=== PATIENT | female | born 1945 | race Caucasian/White ===

== ENCOUNTER 2016-06-05 09:02 | Day surgery (SDC) | payer MEDICARE ==
[~2016-06-05 09:02] MED LIST: LACTATED RINGERS 500 ML IV ONE
[2016-06-05] MEDS ORDERED: CYCLOPENTOLATE 1% OPHTH DROPS 2 ML OPTH ONE (09:20)
[2016-06-05] MEDS ORDERED: TROPICAMIDE 1% OPHTH 2 ML DROPS OPTH ONE (09:20)
[2016-06-05] MEDS ORDERED: KETOROLAC 0.45% OPHTH DROPS OPTH ONE (09:20)
[2016-06-05] MEDS ORDERED: MIDAZOLAM 2 MG/2 ML VIAL IVP ONE (10:40)
[2016-06-05] MEDS ORDERED: EPINEPHrine 1 MG/ML AMP IO ONE (10:45)
[2016-06-05] MEDS ORDERED: CHONDR SULF/HYALURONATE SYRINGE IO ONE (10:45)
[2016-06-05] MEDS ORDERED: levoFLOXacin 0.5% OPHTH DROPS 5 ML OPTH ONE (10:45)
[2016-06-05] MEDS ORDERED: BRIMONIDINE 0.2% OPHTH DROPS 5 ML OPTH ONE (10:45)
[2016-06-05] MEDS ORDERED: BSS/LIDOCAINE/EPINEPHRINE 1 ML SYRINGE IO ONE (10:45)
[2016-06-05] MEDS ORDERED: PROPARACAINE 0.5% OPHTH DROPS 15 ML OPTH ONE (10:45)
[2016-06-05] MEDS ORDERED: NEOMYCIN/POLYMYX/DEXAMETH OPHTH OINT OPTH ONE (10:45)
== END 2016-06-05 09:03 | disposition home or self-care (01) ==
PROC: 08RJ3JZ Replacement of Right Lens with Synthetic Substitute, Percutaneous Approach (ICD-10-PCS; principal; 2016-06-05 10:00)
DX: H25.11 Age-related nuclear cataract, right eye (principal); Z88.2 Allergy status to sulfonamides; Z90.710 Acquired absence of both cervix and uterus; Z96.652 Presence of left artificial knee joint; Z90.49 Acquired absence of other specified parts of digestive tract
CPT/HCPCS: 66984; V2632; V2787

== ENCOUNTER 2016-06-19 10:29 | Day surgery (SDC) | payer MEDICARE ==
[2016-06-19] MEDS ORDERED: CYCLOPENTOLATE 1% OPHTH DROPS 2 ML OPTH ONE (10:30)
[2016-06-19] MEDS ORDERED: TROPICAMIDE 1% OPHTH 2 ML DROPS OPTH ONE (10:30)
[2016-06-19] MEDS ORDERED: KETOROLAC 0.45% OPHTH DROPS OPTH ONE (10:30)
[2016-06-19] MEDS ORDERED: LACTATED RINGERS 500 ML IV ONE (10:49)
[2016-06-19] MEDS ORDERED: PROPARACAINE 0.5% OPHTH DROPS 15 ML OPTH ONE (11:54)
[2016-06-19] MEDS ORDERED: EPINEPHrine 1 MG/ML AMP IO ONE (11:54)
[2016-06-19] MEDS ORDERED: NEOMYCIN/POLYMYX/DEXAMETH OPHTH OINT OPTH ONE (11:54)
[2016-06-19] MEDS ORDERED: BRIMONIDINE 0.2% OPHTH DROPS 5 ML OPTH ONE (11:54)
[2016-06-19] MEDS ORDERED: BSS/LIDOCAINE/EPINEPHRINE 1 ML SYRINGE IO ONE (11:55)
[2016-06-19] MEDS ORDERED: levoFLOXacin 0.5% OPHTH DROPS 5 ML OPTH ONE (11:55)
[2016-06-19] MEDS ORDERED: CHONDR SULF/HYALURONATE SYRINGE IO ONE (11:55)
[2016-06-19] MEDS ORDERED: TETRACAINE 0.5% OPHTH DROPS 4 ML LEFTEYE ONE (11:55)
[2016-06-19] MEDS ORDERED: MIDAZOLAM 2 MG/2 ML VIAL IVP ONE (12:00)
== END 2016-06-19 10:30 | disposition home or self-care (01) ==
PROC: 08RK3JZ Replacement of Left Lens with Synthetic Substitute, Percutaneous Approach (ICD-10-PCS; principal; 2016-06-19 11:15)
DX: H25.12 Age-related nuclear cataract, left eye (principal); Z88.2 Allergy status to sulfonamides; Z90.710 Acquired absence of both cervix and uterus; Z96.652 Presence of left artificial knee joint; Z90.49 Acquired absence of other specified parts of digestive tract
CPT/HCPCS: 66984; J7120; V2632

== ENCOUNTER 2016-12-06 19:38 | Emergency (ER) | payer MEDICARE ==
--- NOTE | 2016-12-06 22:12 | ED Physician Documentation ---
PD HPI Fall - Stated complaint Stated Complaint: GLF - RIB PX - Chief complaint Chief Complaint: General - History obtained from History obtained from: Patient, Family - History of Present Illness Mechanism of injury: Lost balance Fall distance: Standing position Where injury occurred: Home Timing - onset: How many hours ago (2) Injury(ies) location: Chest Pain level now: 5 Quality of pain: Pain, Sharp Associated symptoms: No: LOC, AMS Symptoms improve with: Rest Worsens with: Movement, Palpation Recently seen: Not recently seen - Additional information Additional information: while trying to hang a shower curtain, lost balance and fell, striking left chest wall against edge of tub Review of Systems Cardiac: reports: Chest pain / pressure (chest wall pain) Respiratory: reports: Reviewed and negative GI: reports: Reviewed and negative PD PAST MEDICAL HISTORY - Past Medical History Past Medical History: No - Present Medications Home Medications: Ambulatory Orders Medication Instructions Recorded Confirmed Diclofenac Sodium 50 mg ORAL BID 06/04/16 06/19/16 Fluticasone [Flonase] 2 spray INH DAILY 06/04/16 06/19/16 Trazodone HCl 50 mg ORAL DAILY PRN 06/04/16 06/19/16 - Allergies Allergies/Adverse Reactions: Allergies Allergy/AdvReac Type Severity Reaction Status Date / Time Sulfa (Sulfonamide Allergy Unknown Unknown Verified 12/06/16 19:49 Antibiotics) PD ED PE NORMAL - Vitals Vital signs reviewed: Yes - General General: Alert and oriented X 3, No acute distress, Well developed/nourished - Cardiac Cardiac: RRR, No murmur - Respiratory Respiratory: No respiratory distress, Clear bilaterally - Abdomen Abdomen: Normal bowel sounds, Soft, Non tender, Non distended - Derm Derm: Normal color, Warm and dry - Neuro Neuro: Alert and oriented X 3, cotton ginner helper 2-12 intact, No motor deficit, No sensory deficit, Normal speech - Free text exam Free text exam: left low anterolateral chest wall tenderness without crepitus 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 there is no evidence of fluid in either interface. lungs are clear and equal bilaterally. she declines pain medication in ED. Departure - Departure Disposition: 01 Home, Self Care Clinical Impression: Chest wall contusion Qualifiers: Encounter type: initial encounter Laterality: left Qualified Code(s): S20.212A - Contusion of left front wall of thorax, initial encounter Condition: Good Instructions: ED Contusion Chest Wall, ED Contusion Vs Minor Fx Rib Follow-Up: Davy Olea MD [Primary Care Provider] - Discharge Date/Time: 12/06/16 22:26
[2016-12-06 22:18] VITALS: BP 169/74
== END 2016-12-06 22:26 | disposition home or self-care (01) ==
LOC: ED 19:38
DX: S20.212A Contusion of left front wall of thorax, initial encounter (principal); W01.198A Fall on same level from slipping, tripping and stumbling with subsequent striking against other object, initial encounter; Y92.012 Bathroom of single-family (private) house as the place of occurrence of the external cause
CPT/HCPCS: 99283

== ENCOUNTER 2017-10-13 14:13 | Outpatient (CLI) | payer MEDICARE ==
[2017-10-13 14:44] LABS: CREATININE 0.8 mg/dL (0.4-1.0)
== END 2017-10-13 14:14 | disposition home or self-care (01) ==
LOC: LAB 14:13
PROVIDERS: ATTEND Physician Assistant Medical
DX: B35.1 Tinea unguium (principal); Z79.899 Other long term (current) drug therapy
CPT/HCPCS: 36415; 82565; 84450; 84460

== ENCOUNTER 2017-12-01 12:20 | Outpatient (CLI) | payer MEDICARE ==
[2017-12-01 12:52] LABS: CREATININE 0.8 mg/dL (0.4-1.0)
== END 2017-12-01 12:21 | disposition home or self-care (01) ==
LOC: LAB 12:20
PROVIDERS: ATTEND Physician Assistant Medical
DX: B35.1 Tinea unguium (principal); Z79.899 Other long term (current) drug therapy
CPT/HCPCS: 36415; 82565; 84450; 84460

== ENCOUNTER 2017-12-31 09:19 | Outpatient (CLI) | payer MEDICARE ==
[2017-12-31 18:04] LABS: CREATININE 0.7 mg/dL (0.4-1.0)
== END 2017-12-31 09:20 | disposition home or self-care (01) ==
LOC: LAB.F 09:19
PROVIDERS: ATTEND Physician Assistant Medical
DX: B35.1 Tinea unguium (principal); Z79.899 Other long term (current) drug therapy
CPT/HCPCS: 36415; 82565; 84450; 84460

== ENCOUNTER 2018-02-25 09:46 | Outpatient (CLI) | payer MEDICARE ==
[2018-02-25 18:00] LABS: CREATININE 0.7 mg/dL (0.4-1.0)
== END 2018-02-25 09:47 | disposition home or self-care (01) ==
LOC: LAB.F 09:46
PROVIDERS: ATTEND Physician Assistant Medical
DX: B35.1 Tinea unguium (principal); Z79.899 Other long term (current) drug therapy
CPT/HCPCS: 36415; 82565; 84450; 84460

== ENCOUNTER 2020-08-25 18:15 | Outpatient (CLI) | payer MEDICARE ==
[2020-08-25 19:53] LABS: BILIRUBIN,URINE NEGATIVE (NEGATIVE); GLUCOSE, URINE (UA) NEGATIVE (NEGATIVE); KETONES,URINE (UA) NEGATIVE (NEGATIVE); LEUKOCYTE ESTERASE, URINE SMALL (NEGATIVE); NITRITE,URINE NEGATIVE (NEGATIVE); OCCULT BLOOD,URINE SMALL (NEGATIVE); PROTEIN,URINE NEGATIVE (NEGATIVE); UROBILINOGEN,URINE 0.2 (NORMAL) E.U./dL (NORMAL)
[2020-08-25 20:03] LABS: CLARITY,URINE CLEAR (CLEAR)
[2020-08-25 20:04] LABS: BACTERIA,URINE Rare /HPF (None Seen); MUCUS,URINE Few Strands; SQUAMOUS EPITHELIAL CELL,UR FEW Squamous (<= Few)
== END 2020-08-25 18:16 | disposition home or self-care (01) ==
LOC: LAB.S 18:15
PROVIDERS: ATTEND Internal Medicine
DX: R39.15 Urgency of urination (principal); R30.9 Painful micturition, unspecified; R39.89 Other symptoms and signs involving the genitourinary system
CPT/HCPCS: 81001; 81003; 87086

== ENCOUNTER 2022-08-06 11:11 | Outpatient (CLI) | payer MEDICARE ==
[2022-08-06 15:40] LABS: BILIRUBIN,DIRECT 0.1 mg/dL (0.1-0.5); BILIRUBIN,TOTAL 0.7 mg/dL (0.2-1.0); CREATININE 0.7 mg/dL (0.4-1.0); TOTAL PROTEIN 6.7 g/dL (6.7-8.2)
== END 2022-08-06 11:12 | disposition home or self-care (01) ==
LOC: LAB.S 11:11
PROVIDERS: ATTEND Physician Assistant Medical
DX: B35.1 Tinea unguium (principal)
CPT/HCPCS: 36415; 80076; 82565; 84520

== ENCOUNTER 2022-11-04 09:37 | Outpatient (CLI) | payer MEDICARE ==
[2022-11-04 15:59] LABS: ALBUMIN 4.2 g/dL (3.2-5.5); ALKALINE PHOSPHATASE 58 IU/L (42-121); ALT ALANINE AMINOTRANSFERASE 17 IU/L (10-60); AST ASPARTATE AMINOTRANSFERASE 28 IU/L (10-42); BILIRUBIN,DIRECT < 0.10 mg/dL (0.03-0.18); BILIRUBIN,TOTAL 0.4 mg/dL (0.2-1.0); BUN - BLOOD UREA NITROGEN 18 mg/dL (6-20); CREATININE 0.7 mg/dL (0.6-1.3); GFR - MDRD 81 (>89); TOTAL PROTEIN 6.5 g/dL (6.4-8.9)
== END 2022-11-04 09:38 | disposition home or self-care (01) ==
LOC: LAB.S 09:37
PROVIDERS: ATTEND Physician Assistant Medical
DX: B35.1 Tinea unguium (principal)
CPT/HCPCS: 36415; 80076; 82565; 84520

== ENCOUNTER 2023-01-06 10:59 | Outpatient (CLI) | payer MEDICARE ==
[2023-01-06 15:47] LABS: ALBUMIN 4.3 g/dL (3.2-5.5); BUN - BLOOD UREA NITROGEN 26 mg/dL (6-20); CREATININE 0.7 mg/dL (0.6-1.3); GFR - MDRD 81 (>89)
[2023-01-06 15:48] LABS: ALKALINE PHOSPHATASE 53 IU/L (42-121); ALT ALANINE AMINOTRANSFERASE 16 IU/L (10-60); AST ASPARTATE AMINOTRANSFERASE 29 IU/L (10-42); BILIRUBIN,DIRECT < 0.10 mg/dL (0.03-0.18); BILIRUBIN,TOTAL 0.5 mg/dL (0.2-1.0); TOTAL PROTEIN 6.4 g/dL (6.4-8.9)
== END 2023-01-06 11:00 | disposition home or self-care (01) ==
LOC: LAB.S 10:59
PROVIDERS: ATTEND Physician Assistant Medical
DX: B35.1 Tinea unguium (principal)
CPT/HCPCS: 36415; 80076; 82565; 84520

== ENCOUNTER 2023-03-03 09:42 | Outpatient (CLI) | payer MEDICARE ==
[2023-03-03 17:19] LABS: ALBUMIN 4.5 g/dL (3.2-5.5); ALKALINE PHOSPHATASE 59 IU/L (42-121); ALT ALANINE AMINOTRANSFERASE 17 IU/L (10-60); AST ASPARTATE AMINOTRANSFERASE 26 IU/L (10-42); BILIRUBIN,DIRECT < 0.10 mg/dL (0.03-0.18); BILIRUBIN,TOTAL 0.5 mg/dL (0.2-1.0); BUN - BLOOD UREA NITROGEN 19 mg/dL (6-20); CREATININE 0.7 mg/dL (0.6-1.3); GFR - MDRD 81 (>89); TOTAL PROTEIN 6.9 g/dL (6.4-8.9)
== END 2023-03-03 09:43 | disposition home or self-care (01) ==
LOC: LAB.S 09:42
PROVIDERS: ATTEND Physician Assistant Medical
DX: B35.1 Tinea unguium (principal)
CPT/HCPCS: 36415; 80076; 82565; 84520

== ENCOUNTER 2023-05-19 09:42 | Outpatient (CLI) | payer MEDICARE ==
[2023-05-19 15:14] LABS: ALBUMIN 4.3 g/dL (3.2-5.5); BILIRUBIN,DIRECT 0.1 mg/dL (0.03-0.18); BILIRUBIN,TOTAL 0.5 mg/dL (0.2-1.0); CREATININE 0.8 mg/dL (0.6-1.3); TOTAL PROTEIN 6.7 g/dL (6.4-8.9)
== END 2023-05-19 09:43 | disposition home or self-care (01) ==
LOC: LAB.S 09:42
PROVIDERS: ATTEND Physician Assistant Medical
DX: B35.1 Tinea unguium (principal)
CPT/HCPCS: 36415; 80076; 82565; 84520

== ENCOUNTER 2023-08-04 09:50 | Outpatient (CLI) | payer MEDICARE ==
[2023-08-04 14:53] LABS: ALBUMIN 4.3 g/dL (3.2-5.5); BILIRUBIN,DIRECT 0.11 mg/dL (0.03-0.18); BILIRUBIN,TOTAL 0.5 mg/dL (0.2-1.0); CREATININE 0.6 mg/dL (0.6-1.3); TOTAL PROTEIN 6.7 g/dL (6.4-8.9)
== END 2023-08-04 09:51 | disposition home or self-care (01) ==
LOC: LAB.S 09:50
PROVIDERS: ATTEND Physician Assistant Medical
DX: B35.1 Tinea unguium (principal)
CPT/HCPCS: 36415; 80076; 82565; 84520

== ENCOUNTER 2023-08-25 15:52 | Outpatient (CLI) | payer MEDICARE ==
--- NOTE | 2023-08-26 00:04 | XRAY Report ---
PROCEDURE: Foot 3+V LT (Weight Bearing) INDICATIONS: LEFT FOOT PAIN TECHNIQUE: 3 views of the foot were acquired. COMPARISON: None. FINDINGS: Bones: No fractures or dislocations. Advanced degenerative changes in the midfoot. No suspicious bon y lesions. Bones appear osteopenic. Soft tissues: No tibiotalar joint effusion. Achilles tendon appears normal. IMPRESSION: Advanced degenerative changes in the midfoot. Bones appear osteopenic. Reviewed by: Cruzito Barrios MD on 08/26/2023 12:02 AM PDT Approved by: Cruzito Barrios MD on 08/26/2023 12:02 AM PDT Station ID: [id number]
== END 2023-08-25 15:53 | disposition home or self-care (01) ==
LOC: DI 15:52
PROVIDERS: ATTEND Podiatrist
DX: M19.072 Primary osteoarthritis, left ankle and foot (principal)

== ENCOUNTER 2023-10-03 10:02 | Outpatient (CLI) | payer MEDICARE ==
[2023-10-03 16:32] LABS: ALKALINE PHOSPHATASE 47 IU/L (42-121); ALT ALANINE AMINOTRANSFERASE 16 IU/L (10-60); AST ASPARTATE AMINOTRANSFERASE 25 IU/L (10-42); BILIRUBIN,DIRECT < 0.10 mg/dL (0.03-0.18); BILIRUBIN,TOTAL 0.4 mg/dL (0.2-1.0); BUN - BLOOD UREA NITROGEN 36 mg/dL (6-20); CREATININE 0.7 mg/dL (0.6-1.3); GFR - MDRD 81 (>89); TOTAL PROTEIN 6.3 g/dL (6.4-8.9)
== END 2023-10-03 10:03 | disposition home or self-care (01) ==
LOC: LAB.S 10:02
PROVIDERS: ATTEND Physician Assistant Medical
DX: B35.1 Tinea unguium (principal)
CPT/HCPCS: 36415; 80076; 82565; 84520

== ENCOUNTER 2024-07-30 07:45 | Inpatient (IN) ==
--- NOTE | 2024-07-30 07:56 | ED Physician Documentation ---
History of Present Illness Stated complaint Stated Complaint: GLF Chief complaint Chief Complaint: Ext Problem History obtained from History obtained from: Patient and EMS History of Present Illness Pain level max: 7 Pain level now: 4 Additonal information Additional information: Patient is an 79-year-old female who states that she was getting up out of bed today when she slipped fell and landed on her left hip. Complains of left hip pain. Worse with movement, unable to stand or walk. Called EMS who brought her to the emergency department. She states that her pain is "not bad" unless she tries to move her leg. No neck or back pain. No other injuries. Not on blood thinners. History of bilateral knee replacements and shoulder arthroplasties. Meds/Allgy Home Medications Ambulatory Orders Medication Instructions Recorded Confirmed fluticasone propionate 50 2 spray inhalation DAILY 01/1005/18/24 mcg/actuation nasal spray,suspension trazodone 50 mg tablet 50 mg ORAL QPM Insomnia 05/2505/18/24 ascorbic acid (vitamin C) 500 mg 500 mg PO DAILY 01/1705/18/24 capsule calcium 300 mg (carb, 2 ea PO BID 01/17/17 5 citrate)-magnesium 150 mg-vit D3 400 unit tablet (Hector-Mag Complex) cholecalciferol (vitamin D3) 25 50 mcg PO DAILY 05/18/24 mcg (1,000 unit) capsule multivitamin (Multiple Vitamins 1 ea PO BID supplement 01/17/17 05/18/24 tablet) omega 6-xge-gqc-fish oil 300 1,000 mg PO DAILY 7 05/18/24 mg-1,000 mg capsule (Fish Oil) sennosides 8.6 mg tablet (Senna 8.6 mg PO BID 01/17/17 05/18/24 Laxative) trospium 20 mg tablet 20 mg PO QPM 01/17/17 Held on 03/19/24. Instructions: Per Patient vitamin B comp with C no.4 150 mg 1 cap PO DAILY 01/1705/18/24 tablet (Super B Complex + C) vitamin E (dl, acetate) 180 mg 400 units PO DAILY 12/2605/18/24 (400 unit) capsule Held on 03/19/24. Instructions: Per Patient diclofenac sodium 50 mg 50 mg PO BID back pain 03/1905/18/24 tablet,delayed release docusate sodium 100 mg capsule 100 mg PO BID 03/19/24 05/18/24 (Colace) oxybutynin 5 mg PO .pm overactivity ebony dder 03/19/24 05/18/24 rosuvastatin 5 mg tablet (Crestor) 5 mg PO .bedtime 05/18/24 terbinafine HCl 250 mg tablet 250 mg PO .AM Fungus 05/18/24 Allergies Allergies Allergy/AdvReac Type Severity Reaction Status Date / Time Sulfa (Sulfonamide Allergy Unknown Unknown Verified 05/14/24 13:55 Antibiotics) PFSH Active Problems All Active Problems (Updated 07/30/24 @ 08:41 by Lonnie Das MD) Closed intertrochanteric fracture of left femur (Acute) Essential hypertension (Acute) Finger dislocation (Acute) Left hand pain (Acute) Localized edema (Acute) 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 (Date/Year): never smoked Do you dip or chew tobacco?: No Patient requests smoking cessation consult: No Initiate information on smoking cessation: No Relationship: Do you feel safe in your home environment?: Yes Suffered physical, verbal, emotional, or financial abuse?: No History of Abuse: No Exam Exam Vital Signs: Vital Signs x48h Temp Pulse Resp BP Pulse Ox 07/30/24 07:26 37.1 C 73 16 170/78 H 97 Constitutional normal general appearance and no apparent distress HENMT normocephalic, head/scalp atraumatic and TMs normal bilaterally Eyes PERRL and EOMs intact bilaterally Neck/C-Spine visual inspection normal, trachea midline, cervical spine nontender and cervical full ROM noted No tenderness to palpation or percussion. No step-off or deformity. Chest inspection of chest normal and palpation of chest normal Respiratory breath sounds equal bilaterally, normal respiratory effort and clear to auscultation bilaterally Cardiovascular normal heart rate noted and regular rhythm noted Gastrointestinal abdomen normal to inspection, abdomen soft to palpation, nontender to palpation, nontender to percussion and nondistended Genitourinary no CVA tenderness Back/Pelvis spine normal to inspection, no thoracic spine tenderness and no lumbar spine tenderness No tenderness to palpation or percussion. No step-off or deformity over the thoracolumbar spine Extremities Tender to palpation over the left hip. No crepitus. Neurovascular intact. Very limited range of motion secondary to pain. Leg is externally rotated and shortened. Otherwise normal examination of the extremities. Neurology sod stripper II-XII intact and GCS 15 Psychiatry mental status grossly normal and oriented x3 Skin skin color normal Results Vitals Vitals: Vital Signs - 24 hr 07/30/24 07:26 Temperature 37.1 C Temperature Source Temporal Artery Scan Pulse Rate 73 Respiratory Rate 16 Blood Pressure 170/78 H O2 Saturation 97 O2 Source Room air Pain Intensity 3 Oxygen O2 Source Room air Labs Labs: Laboratory Tests 07/30/24 08:03 WBC 10.2 RBC 4.01 L Hgb 12.9 Hct 38.8 MCV 96.8 MCH 32.2 H MCHC 33.2 RDW 14.4 Plt Count 270 MPV 9.9 Neut # (Auto) 8.2 H Lymph # (Auto) 1.1 L [place] # (Auto) 0.8 Eos # (Auto) 0.1 Baso # (Auto) 0.0 Absolute Nucleated RBC 0.00 Nucleated RBC % 0.0 Sodium 136 Potassium 4.1 Chloride 100 L Carbon Dioxide 31 Anion Gap 5.0 L BUN 23 H Creatinine 0.7 Estimated GFR (MDRD) 80 L Glucose 122 H Calcium 9.3 Total Bilirubin 0.5 AST 25 ALT 17 Alkaline Phosphatase 50 Total Protein 6.6 Albumin 4.2 Globulin 2.4 Albumin/Globulin Ratio 1.8 Rads (name of study) Left hip x-ray: Relevant Findings:: Final report received Chest x-ray: Relevant Findings:: Final report received PD Medical Decision Making ED course Complexity details: reviewed results, re-evaluated patient, considered differential, d/w patient, d/w family and d/w datastage consultant ED course: 79-year-old female status post a ground-level fall at home. She injured her left hip. Has a left intertrochanteric fracture that is displaced. Discussed the case with Dr. Keith, orthopedics, recommends admission to the hospitalist service and we will plan on operative fixation. Family asked that I contact [facility] to see if they out of bed as she has had prior joint surgeries there, [facility] [place] states that they are full and do not have any beds today. Informed the family of this and will admit the patient here as planned. Patient and family are comfortable with this plan. Discussed the case with the hospitalist, Dr. Damon who accepts. This document was made in part using voice recognition software. While efforts are made to proofread this document, sound alike and grammatical errors may occur. Discharge Plan Discharge Patient Disposition: 66 [facility] DC/Xfer Condition: Stable Clinical Impression: Closed intertrochanteric fracture of left femur Qualifiers: Encounter type: initial encounter Fracture alignment: displaced Qualified Cod e(s): S72.142A - Displaced intertrochanteric fracture of left femur, initial encounter for closed fracture Prescriptions: No Action trazodone 50 MG tablet 50 mg ORAL QPM fluticasone propionate 120 SPRAYS spray,suspension 2 spray inhalation DAILY Patient Comments: USED "A LONG TIME AGO" multivitamin [Multiple Vitamins] 1 EACH tablet 1 ea PO BID sennosides [Senna Laxative] 8.6 MG tablet 8.6 mg PO BID cholecalciferol (vitamin D3) 1,000 UNIT capsule 50 mcg PO DAILY trospium 20 MG tablet 20 mg PO QPM Super B Complex + C 150 MG tablet 1 cap PO DAILY vitamin E (dl, acetate) 400 UNIT capsule 400 units PO DAILY omega 0-fiy-qxs-fish oil [Fish Oil] 1 EACH capsule 1,000 mg PO DAILY ascorbic acid (vitamin C) 500 MG capsule 500 mg PO DAILY Hector-Mag Complex 1 EACH tablet 2 ea PO BID terbinafine HCl 250 mg tablet 250 mg PO .AM diclofenac sodium 50 mg tablet,delayed release (DR/EC) 50 mg PO BID oxybutynin 5 mg PO .pm rosuvastatin [Crestor] 5 mg tablet 5 mg PO .bedtime docusate sodium [Colace] 100 mg capsule 100 mg PO BID Print Language: Tongan
--- OUTSIDE RECORDS SUMMARY | 2024-07-30 08:06 | EXTERNAL MEDICAL SUMMARY RPT | Continuity of Care Document ---
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 [facility] 2024-05-03 14:28 Localized edema [facility] 2024-05-03 14:28 Other injury of unsp ecified body region, initial encounter [facility] 2024-05-10 16:05 Tinea unguium [facility] 2024-05-11 00:05 Tinea unguium [facility] 2024-05-12 13:07 Non-pressure chronic ulcer of left calf with fat layer exposed [facility] 2024-05-12 13:07 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 [facility] 2024-05-12 13:07 Localized edema [facility] 2024-05-12 13:07 Other injury of unsp ecified body region, initial encounter [facility] 2024-05-12 13:12 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 [facility] 2024-05-12 13:12 Localized edema [facility] 2024-05-12 13:12 Other injury of unsp ecified body region, initial encounter [facility] 2024-05-12 13:12 Encounter for follow -up examination after completed treatment for conditions other than malignant neoplasm [facility] 2024-05-14 14:37 [facility] 2024-05-14 15:24 Pain in left hand [facility] 2024-05-14 15:27 Pain in left hand [facility] 2024-05-15 00:02 Pain in left hand [facility] 2024-07-13 13:40 Tinea unguium [facility] 2024-07-13 13:42 Tinea unguium [facility] 2024-07-14 00:05 Tinea unguium [facility] Results/Labs test date facility value unit notes Result panel 1 BILIRUBIN,DIRECT 2024-05-10 16:07 [facility] < 0.10 m g/dl As of August 2022 testing method has changed, this may include reference ranges. BILIRUBIN,TOTAL 2024-05-10 16:07 [facility] 0.4 mg /dl As of August 2022 testing method has changed, this may include reference ranges. ALT ALANINE AMINOTRANSFERASE 2024-05-10 16:07 [facility] 18 iu/l As of August 2022 testing method has changed, this may include reference ranges. GLOBULIN 2024-05-10 16:07 [facility] 2.3 g/dl (missing) AST ASPARTATE AMINOTRANSFERASE 2024-05-10 16:07 [facility] 27 iu/l As of August 2022 testing method has changed, this may include reference ranges. ALBUMIN 2024-05-10 16:07 [facility] 4.3 g/dl As of August 2022 testing method has changed, this may include reference ranges. ALKALINE PHOSPHATASE 2024-05-10 16:07 [facility] 49 iu/l As of August 2022 testing method has changed, this may include reference ranges. TOTAL PROTEIN 2024-05-10 16:07 [facility] 6.6 g/dl As of August 2022 testing method has changed, this may include reference ranges. Result panel 2 BILIRUBIN,DIRECT 2024-07-13 13:44 [facility] < 0.10 m g/dl As of August 2022 testing method has changed, this may include reference ranges. BILIRUBIN,TOTAL 2024-07-13 13:44 [facility] 0.4 mg /dl As of August 2022 testing method has changed, this may include reference ranges. ALT ALANINE AMINOTRANSFERASE 2024-07-13 13:44 [facility] 18 iu/l As of August 2022 testing method has changed, this may include reference ranges. GLOBULIN 2024-07-13 13:44 [facility] 2.4 g/dl (missing) AST ASPARTATE AMINOTRANSFERASE 2024-07-13 13:44 [facility] 29 iu/l As of August 2022 testing method has changed, this may include reference ranges. ALBUMIN 2024-07-13 13:44 [facility] 4.4 g/dl As of August 2022 testing method has changed, this may include reference ranges. ALKALINE PHOSPHATASE 2024-07-13 13:44 [facility] 51 iu/l As of August 2022 testing method has changed, this may include reference ranges. TOTAL PROTEIN 2024-07-13 13:44 [facility] 6.8 g/dl As of August 2022 testing method has changed, this may include reference ranges. Social History date description facility
[2024-07-30 08:10] LABS: BASOPHILS % (AUTO) 0.4 %; EOSINOPHILS # (AUTO) 0.1 10^3/uL (0.0-0.7); EOSINOPHILS % (AUTO) 0.8 %; HCT - HEMATOCRIT 38.8 % (37.0-47.0); HGB - HEMOGLOBIN 12.9 g/dL (12.0-16.0); LYMPHOCYTES # (AUTO) 1.1 10^3/uL (1.5-3.5); LYMPHOCYTES % (AUTO) 10.7 %; MEAN CORPUSCULAR HEMOGLOBIN 32.2 pg (27.0-31.0); MEAN CORPUSCULAR HGB CONC 33.2 g/dL (32.0-36.0); MEAN CORPUSCULAR VOLUME 96.8 fL (81.0-99.0); MEAN PLATELET VOLUME 9.9 fL (7.9-10.8); MONOCYTES # (AUTO) 0.8 10^3/uL (0.0-1.0); MONOCYTES % (AUTO) 7.9 %; NEUTROPHILS # (AUTO) 8.2 10^3/uL (1.5-6.6); NEUTROPHILS % (AUTO) 79.7 %; PLT - PLATELET COUNT 270 10^3/uL (130-450); RED BLOOD COUNT 4.01 10^6/uL (4.20-5.40); RED CELL DISTRIBUTION WIDTH 14.4 % (12.0-15.0); WHITE BLOOD COUNT 10.2 x10^3/uL (4.8-10.8)
[2024-07-30 08:24] LABS: ALBUMIN 4.2 g/dL (3.2-5.5); ALBUMIN/GLOBULIN RATIO 1.8 (1.0-2.2); BILIRUBIN,TOTAL 0.5 mg/dL (0.2-1.0); CALCIUM 9.3 mg/dL (8.5-10.3); CREATININE 0.7 mg/dL (0.6-1.3); POTASSIUM 4.1 mmol/L (3.5-4.5); TOTAL PROTEIN 6.6 g/dL (6.4-8.9)
--- NOTE | 2024-07-30 08:59 | XRAY Report ---
PROCEDURE: XR Hip w/Pelvis 2-3V LT INDICATIONS: fall, hip pain TECHNIQUE: 3 views of the hip were acquired. COMPARISON: None. FINDINGS: Bones: Acute comminuted fracture involving intertrochanteric region of left proximal femur with superior migration of femoral shaft in relation to femoral head. No dislocation. Moderate bilateral hip joint osteoarthritis. No evidence of avascular necrosis. No suspicious bony lesions. Soft tissues: No suspicious soft tissue calcifications or masses. IMPRESSION: Acute comminuted and displaced intertrochanteric fracture of left proximal femur. Reviewed by: Fox Brady MD on 07/30/2024 8:58 AM PDT Approved by: Fox Brady MD on 07/30/2024 8:58 AM PDT Station ID: [id number]
--- NOTE | 2024-07-30 08:59 | XRAY Report ---
PROCEDURE: XR Chest 1V INDICATIONS: pre op TECHNIQUE: One view of the chest was acquired. COMPARISON: None. FINDINGS: Surgical changes and devices: Patient is status post bilateral shoulder arthroplasty. Lungs and pleura: No pleural effusions or pneumothorax. No consolidation. Mediastinum: Mediastinal contours appear normal. Heart size is normal. Bones and chest wall: No suspicious bony lesions. Overlying soft tissues appear unremarkable. IMPRESSION: No acute cardiopulmonary process. Reviewed by: Fox Brady MD on 07/30/2024 8:58 AM PDT Approved by: Fox Brady MD on 07/30/2024 8:58 AM PDT Station ID: [id number]
[2024-07-30] MEDS ORDERED: SODIUM CHLORIDE FLUSH 0.9% 10 ML SYRINGE IVP PRN (09:45)
--- OUTSIDE RECORDS SUMMARY | 2024-07-30 10:08 | EXTERNAL MEDICAL SUMMARY RPT | Continuity of Care Document ---
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 [facility]BUM[facility] 2024-05-10 16[facility]07 [facility] 4.3 g/dl As of August 2022 testing method has changed, this may include reference ranges. ALKALINE PHOSPHATASE 2024-05-10 16:07 [facility] 49 iu/l As of August 2022 testing method has changed, this may include reference ranges. TOTAL PROTEIN 2024-05-10 16:07 [facility] 6.6 g/dl As of August 2022 [...] reference ranges. ALT ALANINE AMINOTRANSFERASE 2024-07-13 13:44 [facility] 18 iu/l As of August 2022 testing method has changed, this may include reference ranges. GLOBULIN 2024-07-13 13:44 [facility] 2.4 g/dl (missing) AST ASPARTATE AMINOTRANSFERASE 2024-07-13 13:44 [facility] 29 iu/l As of August 2022 testing method has changed, this may include reference ranges. ALBUMIN 2024-07-13 13:44 [facility] 4.4 g/dl As of August 2022 testing method has changed, this may include reference ranges. ALKALINE PHOSPHATASE 2024-07-13 13:44 [facility] 51 iu/l As of August 2022 testing method has changed, this may include reference ranges. TOTAL PROTEIN 2024-07-13 13:44 [facility] 6.8 g/dl As of August 2022 testing method has changed, this may include reference ranges. Social History date description facility
--- OUTSIDE RECORDS SUMMARY | 2024-07-30 10:09 | EXTERNAL MEDICAL SUMMARY RPT | Continuity of Care Document ---
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 [facility] 2024-05-03 14:28 Localized edema [facility] 2024-05-03 14:28 Other injury of unsp ecified body region, initial encounter [email or web address] 2024-05-10 16:05 Tinea unguium [facility] 2024-05-11 00:05 Tinea unguium [facility] 2024-05-12 13:07 Non-pressure chronic ulcer of left calf with fat layer exposed [facility] 2024-05-12 13:07 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 [facility] 2024-05-12 13:07 Localized edema [facility] 2024-05-12 13:07 Other injury of unsp ecified body region, initial encounter [email or web address] 2024-05-12 13:12 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 ALBUMIN 2024-05-10 16:07 [email or web address] 4.3 g/dl As of August 2022 testing method has changed, this may include reference ranges. ALKALINE PHOSPHATASE 2024-05-10 16:07 [facility] 49 iu/l As of August 2022 testing method has changed, this may include reference ranges. TOTAL PROTEIN 2024-05-10 16:07 [email or web address] 6.6 g/dl As of August 2022 [...] reference ranges. ALT ALANINE AMINOTRANSFERASE 2024-07-13 13:44 [facility] 18 iu/l As of August 2022 testing method has changed, this may include reference ranges. GLOBULIN 2024-07-13 13:44 [facility] 2.4 g/dl (missing) AST ASPARTATE AMINOTRANSFERASE 2024-07-13 13:44 [facility] 29 iu/l As of August 2022 testing method has changed, this may include reference ranges. ALBUMIN 2024-07-13 13:44 [facility] 4.4 g/dl As of August 2022 testing method has changed, this may include reference ranges. ALKALINE PHOSPHATASE 2024-07-13 13:44 [facility] 51 iu/l As of August 2022 testing method has changed, this may include reference ranges. TOTAL PROTEIN 2024-07-13 13:44 [facility] 6.8 g/dl As of August 2022 testing method has changed, this may include reference ranges. Social History date description facility
[2024-07-30] MEDS: ACETAMINOPHEN 325 MG TABLET PO PRN (10:25)
[2024-07-30] MEDS: oxyCODONE 5 MG TABLET PO PRN (10:26)
[2024-07-30] MEDS: SODIUM CHLORIDE FLUSH 0.9% 10 ML SYRINGE IVP SCH (10:29)
--- NOTE | 2024-07-30 11:38 | HISTORY & PHYSICAL EXAMINATION ---
Chief Complaint Chief Complaint Chief Complaint: Ground Level Fall, Left Hip Pain History of Present Illness Admitted From Admitted From:: ED History Obtained From Records Reviewed: ED History obtained from: Patient, ED Exam Limitations: None History of Present Illness HPI Comment/Other: 79 year old female with history of B/L total knee replacements, B/L shoulder arthroplasty, osteoporosis presents s/p ground level fall last night. Patient reports falling on her left hip while getting out of bed due to pre-existing left foot pain. Denies any LOC, dizziness, or syncope prior to fall. Denies landing on left wrist, denies wrist pain. States she attempted to get up but couldn't bear weight on her left leg. States she scooted over to the restroom to pee and then to the kitchen to get her phone to call her daughter. She arrived via EMS. Denies loss of bowel or bladder control. Denies back pain. Reports history of osteoporosis and getting IV infusion Bisphosphonate yearly. Denies history of diabetes. Denies blood thinner use. Denies history of smoking and quit alcohol use 18 years ago. She currently lives alone and normally ambulates without aid. She has two dogs and walks at least 5 miles a day. Denies history of RA. Currently rates pain as 3/10. Meds/Allgy Home Medications Ambulatory Orders Medication Instructions Recorded Confirmed fluticasone propionate 50 2 spray inhalation DAILY 01/1007/30/24 mcg/actuation nasal spray,suspension trazodone 50 mg tablet 50 mg ORAL QPM Insomnia 05/2507/30/24 ascorbic acid (vitamin C) 500 mg 500 mg PO DAILY 01/1707/30/24 capsule calcium 300 mg (carb, 2 ea PO BID 01/17/17 5 citrate)-magnesium 150 mg-vit D3 400 unit tablet (Hector-Mag Complex) cholecalciferol (vitamin D3) 25 50 mcg PO DAILY 07/30/24 mcg (1,000 unit) capsule multivitamin (Multiple Vitamins 1 ea PO BID supplement 01/17/17 07/30/24 tablet) omega 2-vbf-lin-fish oil 300 1,000 mg PO DAILY 7 07/30/24 mg-1,000 mg capsule (Fish Oil) sennosides 8.6 mg tablet (Senna 8.6 mg PO BID 01/17/17 07/30/24 Laxative) vitamin B comp with C no.4 150 mg 1 cap PO DAILY 01/1707/30/24 tablet (Super B Complex + C) diclofenac sodium 50 mg 50 mg PO BID back pain 03/1907/30/24 tablet,delayed release docusate sodium 100 mg capsule 100 mg PO BID 03/19/24 07/30/24 (Colace) rosuvastatin 5 mg tablet (Crestor) 5 mg PO QPM 5 07/30/24 terbinafine HCl 250 mg tablet 250 mg PO DAILY Fungus 0 03/19/24 07/30/24 oxybutynin chloride 5 mg tablet 5 mg PO QPM 07/30/24 0 07/30/24 Allergies Allergies Allergy/AdvReac Type Severity Reaction Status Date / Time Sulfa (Sulfonamide Allergy Unknown Unknown Verified 05/14/24 13:55 Antibiotics) PFSH Active Problems All Active Problems (Updated 07/30/24 @ 15:09 by Ash Bishop MD) Insomnia (Acute) Closed intertrochanteric fracture of left femur (Acute) Essential hypertension (Acute) Finger dislocation (Acute) Left hand pain (Acute) Localized edema (Acute) 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 (Date/Year): never smoked Second hand tobacco smoke exposure: No Do you dip or chew tobacco?: No Do you vape?: No Patient requests smoking cessation consult: No Initiate information on smoking cessation: No Relationship: Level: Independent Do you feel safe in your home environment?: Yes Suffered physical, verbal, emotional, or financial abuse?: No History of Abuse: No POLST Patient has POLST: Yes POLST Status: Full Code Review of Systems Constitutional Reports: Weakness; Denies: Fatigue, Fever, Chills, Malaise or Poor appetite Eyes Denies: Pain, Irritation, Blurry vision, Vision loss, Diplopia or Eye discomfort Ears, nose, mouth, and throat Denies: Ear pain, Hearing loss, Tinnitus, Nose bleeds, Nasal discharge, Mouth lesions, Bleeding gums or Neck pain Cardiovascular Denies: Irregular heart rate, chest pain, palpitations, edema, Syncope or shortness of breath with exertion Respiratory Denies: Shortness of breath, Cough, Sputum production or Wheezing Gastrointestinal Denies: Abdominal pain, Abdominal distention, Nausea, Vomiting, Heartburn, Diarrhea or Constipation Genitourinary Denies: Painful urination, Urinary frequency or Urinary urgency Musculoskeletal Reports: Extremity pain (Left hip pain, difficulty bearing weight. ), Joint pain, Limited range of motion and Joint swelling; Denies: Neck pain Integumentary/Breast Denies: Rash, Itching, Dryness, Redness or Skin pain Neurological Denies: Headache, General weakness, Weakness in extremities, Numbness in extremities, Abnormal gait or Dizziness Psychiatric Denies: Depression, Anxiety, Mood swings or Panic attacks Endocrine Denies: Excessive urination, Excessive thirst or Fatigue Hematologic/Lymphatic Denies: Anemia, Easy bruising or Easy bleeding Allergic/Immunologic Denies: Hives, Tongue swelling, Facial swelling or Wheezing Prior Level of Functionality: Lives alone. Independently completing ADLs. Exam Exam Vital Signs: Vital Signs x48h Temp Pulse Pulse Resp BP BP Pulse Ox 07/30/24 09:47 98.1 F 78 18 109/76 97 07/30/24 09:33 76 16 166/71 H 95 Constitutional normal general appearance and no apparent distress HENMT normocephalic, head/scalp atraumatic and TMs normal bilaterally Eyes PERRL and EOMs intact bilaterally Neck/C-Spine visual inspection normal, trachea midline, cervical spine nontender and cervical full ROM noted No tenderness to palpation or percussion. No step-off or deformity. Chest inspection of chest normal and palpation of chest normal Respiratory breath sounds equal bilaterally, normal respiratory effort and clear to auscultation bilaterally Cardiovascular normal heart rate noted and regular rhythm noted Gastrointestinal abdomen normal to inspection, abdomen soft to palpation, nontender to palpation, nontender to percussion and nondistended Genitourinary no CVA tenderness Back/Pelvis spine normal to inspection, no thoracic spine tenderness and no lumbar spine tenderness Extremities Neurovascular intact. Limited range of motion secondary to pain. Leg is externally rotated and shortened Neurology glass silverer II-XII intact and GCS 15 Psychiatry mental status grossly normal and oriented x3 Skin skin color normal Conclusion/Plan Problem List (1) Closed intertrochanteric fracture of left femur: Plan: -Patient s/p ground level fall last night with subsequent left communited and displaced intertrochanteric fracture of left proximal femur. Denies history of smoking, DM, anticoagulant use, or antiplatelet use. Ortho surgery consulted with plans to undergo ORIF, likely intramedullary nail, tomorrow. Patient lives alone and normally ambulates without aid. She will be NPO after midnight, prior to surgery and will undergo PT/OT eval after surgery. -Patient will alternate Tylenol 650mg Q4hrs PRN with opiod pain medication. Patient endorses rash with previous use of one either oxycodone or hydrocodone but was able to tolerate the other not used. Patient will call family to confirm which medication prior to administration. Qualifiers: Encounter type: initial encounter Fracture alignment: displaced Q ualified Code(s): S72.142A - Displaced intertrochanteric fracture of left femur, initial encounter for closed fracture (2) Essential hypertension: Plan: -Patient unmedicated but with historically high readings. Will continue to monitor BP and consider treating if persistently elevated. (3) High cholesterol: Plan: -Continue statin. (4) Insomnia: Plan: -Continue trazodone. Qualifiers: Insomnia type: unspecified Qualified Code(s): G47.00 - Insomnia, unspecified Lab Results Lab results reviewed: Yes 07/30/24 08:03 07/30/24 08:03 Diagnostic Imaging Results Diagnostic Imaging Results: positive Final report reviewed Diagnostic Imaging Results Comments: EXAM: [id number] XR/H2L ([id number]) PROCEDURE: XR Hip w/Pelvis 2-3V LT INDICATIONS: fall, hip pain TECHNIQUE: 3 views of the hip were acquired. COMPARISON: None. FINDINGS: Bones: Acute comminuted fracture involving intertrochanteric region of left proximal femur with superior migration of femoral shaft in relation to femoral head. No dislocation. Moderate bilateral hip joint osteoarthritis. No evidence of avascular necrosis. No suspicious bony lesions. Soft tissues: No suspicious soft tissue calcifications or masses. IMPRESSION: Acute comminuted and displaced intertrochanteric fracture of left proximal femur. Core Measures Anticipated LOS I expect patient to be DC'd or transferred within 96 hours.: Yes DVT/VTE - Prophylaxis VTE/DVT Device ordered at admit?: Yes VTE/DVT Prophylaxis med ordered at admit?: Yes
--- NOTE | 2024-07-30 13:09 | PHARMACY PROGRESS NOTE ---
Best Possible Medication History Admit Date and Time: 07/30/24 0850 Home Medications Medication Instructions Recorded Confirmed Type fluticasone propionate 50 2 spray inhalation DAILY 01/1007/30/24 History mcg/actuation nasal spray,suspension trazodone 50 mg tablet 50 mg ORAL QPM Insomnia 05/2507/30/24 History ascorbic acid (vitamin C) 500 mg 500 mg PO DAILY 01/1707/30/24 History capsule calcium 300 mg (carb, 2 ea PO BID 01/17/17 5 History citrate)-magnesium 150 mg-vit D3 400 unit tablet (Hector-Mag Complex) cholecalciferol (vitamin D3) 25 50 mcg PO DAILY 07/30/24 History mcg (1,000 unit) capsule multivitamin (Multiple Vitamins 1 ea PO BID supplement 01/17/17 07/30/24 History tablet) omega 8-nhx-vse-fish oil 300 1,000 mg PO DAILY 7 07/30/24 History mg-1,000 mg capsule (Fish Oil) sennosides 8.6 mg tablet (Senna 8.6 mg PO BID 01/17/17 07/30/24 History Laxative) vitamin B comp with C no.4 150 mg 1 cap PO DAILY 01/1707/30/24 History tablet (Super B Complex + C) diclofenac sodium 50 mg 50 mg PO BID back pain 03/1907/30/24 History tablet,delayed release docusate sodium 100 mg capsule 100 mg PO BID 03/19/24 07/30/24 History (Colace) rosuvastatin 5 mg tablet (Crestor) 5 mg PO QPM 5 07/30/24 History terbinafine HCl 250 mg tablet 250 mg PO DAILY Fungus 0 03/19/24 07/30/24 History oxybutynin chloride 5 mg tablet 5 mg PO QPM 07/30/24 0 07/30/24 History Processed by: Pharmacy Medications reviewed in ED?: No Medication History completed: Yes Patient Interview: Completed Secondary Source(s): Written medication list, Pharmacy records and Insurance records [facility] Statement: As the person ultimately responsible for medication therapy, providers are able to order a medication from an existing home medication list in [facility] via the "Reconcile Routine" prior to Confirmation of that medication by field technical support consultant. Such practice is discouraged except when the physician, in their clinical judgment, deems that a medical need exists for a medication without regard to previous use.
[2024-07-30] MEDS: MORPHINE 2 MG/ML CARPUJECT IVP PRN (14:51)
[2024-07-30] MEDS: DOCUSATE SODIUM 100 MG CAPSULE PO SCH (21:22)
[2024-07-30] MEDS: traZODone 50 MG TABLET PO SCH (21:22)
[2024-07-30] MEDS: ATORVASTATIN 10 MG TABLET PO SCH (21:22)
[2024-07-30] MEDS: CALCIUM CARBONATE CHEW 500 MG TABLET PO SCH (21:23)
[2024-07-30] MEDS: SENNA 8.6 MG TABLET PO SCH (21:23)
[2024-07-30] MEDS: SOLIFENACIN SUCCINATE 5 MG TABLET PO SCH (21:23)
[2024-07-31] MEDS: MULTIVITAMIN TABLET PO SCH (07:42)
[2024-07-31] MEDS ORDERED: BUPIVACAINE 0.5% PF 10 ML VIAL ONE (07:54)
[2024-07-31] MEDS ORDERED: BACITRACIN ZINC OINT 1 PACKET TOP ONE (07:54)
[2024-07-31] MEDS ORDERED: LIDOCAINE 1%-EPI 1:100000 20 ML MDV ONE (07:54)
[2024-07-31] MEDS: OMEGA-3 ACID ETHYL ESTERS 1 GM CAPSULE PO SCH (08:35)
[2024-07-31] MEDS: ASCORBIC ACID 500 MG TABLET PO SCH (08:35)
[2024-07-31] MEDS: ENOXAPARIN 40 MG/0.4 ML SYRINGE SUBQ SCH (08:35)
[2024-07-31] MEDS: FLUTICASONE NASAL SPRAY NAS SCH (08:35)
[2024-07-31] MEDS: Super B Complex PO SCH (08:35)
[2024-07-31] MEDS: CHOLECALCIFEROL 25 MCG TABLET PO SCH (08:35)
--- NOTE | 2024-07-31 08:44 | ANESTHESIA PROCEDURE NOTE ---
Pre-Anesthesia VS, & Labs Diagnosis Surgical Diagnosis:: Left Hip fracture Procedure Procedure: ORIF left hip fracture with IM nailing Vitals Vital Signs: Temp Pulse Resp BP Pulse Ox 37.0 C 69 20 155/67 H 95 07/31/24 08:19 07/31/24 08:19 07/31/24 08:19 07/31/24 08:19 07/31/24 08:19 NPO NPO: >8 hours Is Patient ?: Not Applicable Lab Results Current Lab Results: Laboratory Tests 07/30/24 08:03: WBC 10.2, RBC 4.01 L, Hgb 12.9, Hct 38.8, MCV 96.8, MCH 32.2 H, MCHC 33.2, RDW 14.4, Plt Count 270, MPV 9.9, Neut # (Auto) 8.2 H, Lymph # (Auto) 1.1 L, [place] # (Auto) 0.8, Eos # (Auto) 0.1, Baso # (Auto) 0.0, Absolute Nucleated RBC 0.00, Nucleated RBC % 0.0, Sodium 136, Potassium 4.1, Chloride 100 L, Carbon Dioxide 31, Anion Gap 5.0 L, BUN 23 H, Creatinine 0.7, Estimated GFR (MDRD) 80 L, Glucose 122 H, Calcium 9.3, Total Bilirubin 0.5, AST 25, ALT 17, Alkaline Phosphatase 50, Total Protein 6.6, Albumin 4.2, Globulin 2.4, Albumin/Globulin Ratio 1.8 Lab results reviewed: Yes 07/30/24 08:03 07/30/24 08:03 Meds/Allgy Home Medications Ambulatory Orders Medication Instructions Recorded Confirmed fluticasone propionate 50 2 spray inhalation DAILY 01/1007/30/24 mcg/actuation nasal spray,suspension trazodone 50 mg tablet 50 mg ORAL QPM Insomnia 05/2507/30/24 ascorbic acid (vitamin C) 500 mg 500 mg PO DAILY 01/1707/30/24 capsule calcium 300 mg (carb, 2 ea PO BID 01/17/17 5 citrate)-magnesium 150 mg-vit D3 400 unit tablet (Hector-Mag Complex) cholecalciferol (vitamin D3) 25 50 mcg PO DAILY 07/30/24 mcg (1,000 unit) capsule multivitamin (Multiple Vitamins 1 ea PO BID supplement 01/17/17 07/30/24 tablet) omega 5-qez-cry-fish oil 300 1,000 mg PO DAILY 7 07/30/24 mg-1,000 mg capsule (Fish Oil) sennosides 8.6 mg tablet (Senna 8.6 mg PO BID 01/17/17 07/30/24 Laxative) vitamin B comp with C no.4 150 mg 1 cap PO DAILY 01/1707/30/24 tablet (Super B Complex + C) diclofenac sodium 50 mg 50 mg PO BID back pain 03/1907/30/24 tablet,delayed release docusate sodium 100 mg capsule 100 mg PO BID 03/19/24 07/30/24 (Colace) rosuvastatin 5 mg tablet (Crestor) 5 mg PO QPM 5 07/30/24 terbinafine HCl 250 mg tablet 250 mg PO DAILY Fungus 0 03/19/24 07/30/24 oxybutynin chloride 5 mg tablet 5 mg PO QPM 07/30/24 0 07/30/24 Allergies Allergies Allergy/AdvReac Type Severity Reaction Status Date / Time Sulfa (Sulfonamide Allergy Unknown Unknown Verified 05/14/24 13:55 Antibiotics) PFSH Active Problems All Active Problems Insomnia (Acute) Closed intertrochanteric fracture of left femur (Acute) Essential hypertension (Acute) Finger dislocation (Acute) Left hand pain (Acute) Localized edema (Acute) 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 (Date/Year): never smoked Second hand tobacco smoke exposure: No Do you dip or chew tobacco?: No Do you vape?: No Patient requests smoking cessation consult: No Initiate information on smoking cessation: No Living arrangement: At home Marital Status: Single Living Condition: Alone Relationship: Level: Independent Do you feel safe in your home environment?: Yes Suffered physical, verbal, emotional, or financial abuse?: No History of Abuse: No ETOH Use: None Substance Use: denies use POLST Patient has POLST: Yes POLST Status: Full Code Anesthesia Exam (Expanded) Exam General: Alert, Oriented x3 and Cooperative Dental: WNL Mouth Openin Fingerbreadth Neck Mobility: Reduced Mallampati classification: II Thyromental Distance: 4-6 cm Respiratory: Lungs clear Cardiovascular: Regular rate Exam Exam Vital Signs: Vital Signs x48h Temp Pulse Resp BP Pulse Ox 07/31/24 08:19 37.0 C 69 20 155/67 H 95 Plan Plan Anesthesia Type: General and Fascia Iliaca Block (Left) Regional Block: Per Surgeon's request for Post Op pain control Consent for Procedure(s) Verified and Reviewed: Yes Code Status: Attempt Resuscitation ASA Classification ASA classification: 2-Mild systemic disease Is this case an emergency?: No
[2024-07-31] MEDS ORDERED: fentaNYL 100 MCG/2 ML VIAL ONE (08:50)
[2024-07-31] MEDS ORDERED: PROPOFOL 200 MG/20 ML VIAL IVP ONE (08:50)
[2024-07-31] MEDS ORDERED: PHENYLEPHRINE 10 MG/ML VIAL ONE (08:57)
[2024-07-31] MEDS ORDERED: LACTATED RINGERS 1,000 ML IV PRN (09:03)
[2024-07-31] MEDS ORDERED: TRANEXAMIC ACID IN NACL 1,000 MG/100 ML BAG IV PRN (09:03)
[2024-07-31] MEDS ORDERED: SODIUM CHLORIDE 0.9% MINIBAG 100 ML IV ONE (09:10)
[2024-07-31] MEDS ORDERED: ceFAZolin 2 GM VIAL ONE (09:10)
--- NOTE | 2024-07-31 09:13 | HISTORY & PHYSICAL EXAMINATION ---
History of Present Illness Admitted From Admitted From:: Emergency room History of Present Illness HPI Comment/Other: Patient fell onto left hip and sustained a left hip fracture. She was seen in the emergency room and was admitted to Medicine and I have been consulted regarding management of the hip. The patient states that she is unable to walk she is unable to lift her leg and all her pain is located around the left hip. She has no numbness or tingling. Colonoscopy Questionnaire In the last 30 days have you experienced these symptoms? 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 (Date/Year): never smoked Second hand tobacco smoke exposure: No Do you dip or chew tobacco?: No Do you vape?: No Patient requests smoking cessation consult: No Initiate information on smoking cessation: No Living arrangement: At home Marital Status: Single Living Condition: Alone Relationship: Level: Independent Do you feel safe in your home environment?: Yes Suffered physical, verbal, emotional, or financial abuse?: No History of Abuse: No ETOH Use: None Substance Use: denies use POLST Patient has POLST: Yes POLST Status: Full Code Meds/Allgy Home Medications Ambulatory Orders Medication Instructions Recorded Confirmed fluticasone propionate 50 2 spray inhalation DAILY 01/1007/30/24 mcg/actuation nasal spray,suspension trazodone 50 mg tablet 50 mg ORAL QPM Insomnia 05/2507/30/24 ascorbic acid (vitamin C) 500 mg 500 mg PO DAILY 01/1707/30/24 capsule calcium 300 mg (carb, 2 ea PO BID 01/17/17 5 citrate)-magnesium 150 mg-vit D3 400 unit tablet (Hector-Mag Complex) cholecalciferol (vitamin D3) 25 50 mcg PO DAILY 07/30/24 mcg (1,000 unit) capsule multivitamin (Multiple Vitamins 1 ea PO BID supplement 01/17/17 07/30/24 tablet) omega 5-uen-mwa-fish oil 300 1,000 mg PO DAILY 7 07/30/24 mg-1,000 mg capsule (Fish Oil) sennosides 8.6 mg tablet (Senna 8.6 mg PO BID 01/17/17 07/30/24 Laxative) vitamin B comp with C no.4 150 mg 1 cap PO DAILY 01/1707/30/24 tablet (Super B Complex + C) diclofenac sodium 50 mg 50 mg PO BID back pain 03/1907/30/24 tablet,delayed release docusate sodium 100 mg capsule 100 mg PO BID 03/19/24 07/30/24 (Colace) rosuvastatin 5 mg tablet (Crestor) 5 mg PO QPM 5 07/30/24 terbinafine HCl 250 mg tablet 250 mg PO DAILY Fungus 0 03/19/24 07/30/24 oxybutynin chloride 5 mg tablet 5 mg PO QPM 07/30/24 0 07/30/24 Allergies Allergies Allergy/AdvReac Type Severity Reaction Status Date / Time Sulfa (Sulfonamide Allergy Unknown Unknown Verified 05/14/24 13:55 Antibiotics) Results Lab Results 07/30/24 08:03 07/30/24 08:03 Exam Exam Vital Signs: Vital Signs x48h Temp Pulse Resp BP Pulse Ox 07/31/24 08:19 37.0 C 69 20 155/67 H 95 Exam directed towards the left hip reveals the left hip to be shortened and externally rotated she has tenderness in the greater trochanteric region she is unable to straight leg raise. She has good sensation good distal pulses. Impression/Plan Problem List (1) Closed intertrochanteric fracture of left femur: Plan: The plan is to take her to the operating room and do intramedullary saloni fixation of left femur. Qualifiers: Encounter type: initial encounter Fracture alignment: displaced Q ualified Code(s): S72.142A - Displaced intertrochanteric fracture of left femur, initial encounter for closed fracture (2) Essential hypertension: (3) High cholesterol: (4) Insomnia: Qualifiers: Insomnia type: unspecified Qualified Code(s): G47.00 - Insomnia, unspecified
[2024-07-31] MEDS ORDERED: TRANEXAMIC ACID IN NACL 1,000 MG/100 ML BAG IV ONE (09:35)
[2024-07-31] MEDS ORDERED: ROPIVACAINE 0.5% PF 20 ML VIAL ONE (10:00)
[2024-07-31] MEDS ORDERED: ONDANSETRON 4 MG/2 ML VIAL ONE (10:01)
[2024-07-31] MEDS ORDERED: DEXAMETHASONE 4 MG/ML VIAL ONE (10:01)
--- NOTE | 2024-07-31 10:01 | PROVIDER PROGRESS NOTE ---
Subjective Subjective Subjective: This morning, patient was anxious to get her surgery or growth. She is very motivated to get home afterwards. She prefers not to go to rehab. She has about 5 steps if she enters her house from the front, and 1 step on the back. She understands that she will be working with PT/OT tomorrow morning. Her pain is well-controlled with Tylenol, morphine. Current Medications Current Medications Current Medications: Current Medications Generic Name Dose Route Start Last Admin Trade Name Jose Raul PRN Reason Stop Dose Admin Acetaminophen 650 mg 07/30/24 09:59 07/31/24 06:24 Acetaminophen 325 Mg Tablet PO 650 mg Q4HR PRN Administration Pain or Fever > 38C (100.4F) Ascorbic Acid 500 mg 07/31/24 09:00 07/31/24 08:35 Ascorbic Acid 500 Mg Tablet PO Not Given DAILY ROMEL Atorvastatin Calcium 10 mg 07/30/24 21:00 07/30/24 21:22 Atorvastatin 10 Mg Tablet PO 10 mg QPM ROMEL Administration Calcium Carbonate/Glycine 1,000 mg 07/30/24 21:00 07/31/24 08:35 Calcium Carbonate Chew 500 Mg Tablet PO Not Given BID ROMEL Cholecalciferol 50 mcg 07/31/24 09:00 07/31/24 08:35 Cholecalciferol 25 Mcg Tablet PO Not Given DAILY ROMEL Docusate Sodium 100 mg 07/30/24 21:00 07/31/24 08:35 Docusate Sodium 100 Mg Capsule PO Not Given BID ROMEL Enoxaparin Sodium 40 mg 07/31/24 09:00 07/31/24 08:35 Enoxaparin 40 Mg/0.4 Ml Syringe SUBQ Not Given DAILY ROMEL Fluticasone Propionate 2 sprays 07/31/24 09:00 07/31/24 08:35 Fluticasone Nasal Loyal KETURAH Not Given DAILY ROMEL Lactated Ringer's 1,000 mls @ 0 mls/hr 07/31/24 09:03 Lr IV .Q0M PRN preop TKO Tranexamic Acid 1,000 mg in 100 mls @ 600 mls/hr 07/31/24 09:03 Tranexamic 1,000 Mg/100ml-Nacl IV PRN PRN PER PHYSICIAN ORDER Morphine Sulfate 2 mg 07/30/24 09:59 07/31/24 07:37 Morphine 2 Mg/Ml Carpuject IVP 2 mg Q2HR PRN Administration Severe Pain (Level 7-10) Multivitamins 1 tab 07/31/24 08:00 07/31/24 07:42 Multivitamin Tablet PO Not Given DAILYWM ROMEL Fvcno-9-Xauj Ethyl Esters 1 gm 07/31/24 09:00 07/31/24 08:35 [place]-3 Acid Ethyl Esters 1 Gm Capsule PO Not Given DAILY ROMEL Super B Complex 1 each 07/31/24 09:00 07/31/24 08:35 PO Not Given DAILY ROMEL Senna 8.6 mg 07/30/24 21:00 07/31/24 08:35 Senna 8.6 Mg Tablet PO Not Given BID ROMEL Sodium Chloride 10 ml 07/30/24 09:45 Sodium Chloride Flush 0.9% 10 Ml Syringe IVP PRN PRN NEEDED PER PROVIDER ORDERS Sodium Chloride 10 ml 07/30/24 09:45 07/31/24 08:33 Sodium Chloride Flush 0.9% 10 Ml Syringe IVP 10 ml 0100,0900,1700 ROMEL Administration Solifenacin 5 mg 07/30/24 21:00 07/30/24 21:23 Solifenacin Succinate 5 Mg Tablet PO 5 mg QPM ROMEL Administration Trazodone HCl 50 mg 07/30/24 21:00 07/30/24 21:22 Trazodone 50 Mg Tablet PO 50 mg QPM ROMEL Administration Objective Vital Signs/Intake & Output Reviewed Vital Signs: Yes Vital Signs: Vital Signs x48h Temp Pulse Resp BP Pulse Ox 07/31/24 08:19 98.6 F 69 20 155/67 H 95 Intake & Output: Intake & Output 07/28/24 07/29/24 07/30/24 07/31/24 23:59 23:59 23:59 23:59 Intake Total 540 / 540 Output Total 1200 / 1200 Balance -660 / -660 Weight (kg) 52 kg Objective General Appearance: positive No acute distress and Alert; negative Anxious Eyes Bilateral: positive Normal inspection, PERRL and EOMI ENT: positive ENT inspection nml, Pharynx nml and No signs of dehydration Neck: positive Nml inspection, Thyroid nml and No JVD Respiratory: positive Chest non-tender, No respiratory distress and Breath sounds nml; negative Wheezes, Rales or Rhonchi Cardiovascular: positive Regular rate & rhythm, No murmur and No gallop; negative Tachycardia or Systolic murmur Abdomen: positive Non-tender, No organomegaly and No distention; negative Guarding or Splenomegaly Back: positive Nml inspection; negative CVA tenderness (R) or CVA tenderness (L) Skin: positive Color nml, No rash, Warm and Dry Extremities: positive Non-tender and Other (Left leg externally rotated and shortened, pain with movement, passive or active) Neurologic/Psychiatric: positive Oriented x3, Motor nml and Mood/affect nml Lab Results 07/30/24 08:03 07/30/24 08:03 Assessment/Plan Problem List (1) Closed intertrochanteric fracture of left femur: Impression: Patient had a ground-level fall, mechanical. No syncope, prodrome, lightheadedness etc. Hip x-ray showed a acute comminuted and displaced intertrochanteric fracture of the left proximal femur. Orthopedic surgery was consultedthey completed a ORIF of the left hip with intramedullary nail this a.m. Plan for PT/OT evaluation tomorrow, based on recommendations, will likely discharge tomorrow. Continue Tylenol for mild pain, [place] for moderate painpatient states that she has a oxycodone allergy, and morphine for severe pain. Continue to encourage early ambulation. Aspirin 81 mg twice daily for DVT prophylaxis. Qualifiers: Encounter type: initial encounter Fracture alignment: displaced Q ualified Code(s): S72.142A - Displaced intertrochanteric fracture of left femur, initial encounter for closed fracture (2) Essential hypertension: Impression: Patient currently not on any medications for elevated blood pressure. Does carry a diagnosis of hypertension. Will continue to monitor, encouraged outpatient follow-up. (3) High cholesterol: Impression: Continue statin. (4) Insomnia: Impression: Continue trazodone. Qualifiers: Insomnia type: unspecified Qualified Code(s): G47.00 - Insomnia, unspecified
[2024-07-31] MEDS ORDERED: SODIUM CHLORIDE 0.9% 10 ML VIAL ONE (10:02)
--- NOTE | 2024-07-31 10:38 | OPERATIVE REPORT ---
Operative Report General Admit Date: 07/30/24 Procedure Data: Operation Date: 07/31/24 09:00 Proposed Procedures p ORIF LEFT HIP WITH INTRAMEDULLARY NAIL(Left) - Christiano Keith, Actual Procedures p Hip Nailing(Left) - Christiano Keith, Pre-Op Diagnosis: DISPLACED LEFT HIP INTERTROCHANTERIC FRACTURE Anesthesia Type General Case Staff Anesthesia Provider: Alexandra Smith Assisting Provider: Mackenzie Freeman Rep: DEDRA JANG - S&N REP. Case Times Procedure Start: 07/31/24 09:49 Time out: 07/31/24 09:48 Implants INTERTAN 10S [id number] 125D LT TRIGEN LAG SCRW 105/100MM TRIGEN L-P SCREW [id number] Pre-Op Diagnosis: Left intertrochanteric hip fracture Post Op Diagnosis: Left intertrochanteric hip fracture Procedure Note Estimated Blood Loss (ml): 50 Complications: None Other Other Information/Narrative: The patient fell at home and sustained a left hip intertrochanteric hip fracture she was admitted through the emergency room to medicine received medical clearance and has agreed to an open reduction intramedullary fixation of her left intratrochanteric hip fracture. The patient was taken to the operative suite and after undergoing a general anesthetic was placed on the fracture table with the left hip exposed under physician guided fluoroscopy we reduced the fracture with the appropriate traction internal rotation and adduction and we confirmed this on AP and lateral films. When that was done we prepped and draped the patient in the usual sterile fashion we made approximately 5 cm incision extending from the distal tip of the trocar proximally we incised the tensor fascia jerilyn and then we were able to palpate the tip of the trochanter. We placed the guidepin in my hand and we confirmed this on AP and lateral x-rays. We overdrilled the outer cortex and then we inserted a 10 mm [employer] titanium nail into the truck and across the fracture site we made sure on x-rays that it was at the appropriate level. We then put up the guidepin through the saloni up into the femoral head and we confirmed this on both AP and lateral films that it was in the center of the head and at the appropriate place at the tip of the head right by the acetabulum. We measured it to be about 115 mm so we subtracted 10 mm and put in a 105 mm lag screw.Once the LAD screw was in place and confirmed we then put in the compression screw and we bottomed out the compression screw for full compression and the fracture was very nicely reduced we then turned distally and put in a 35 mm distal locking screw without any complication. We took final x- rays and the fracture was reduced the saloni was in excellent position both in the femur and in the femoral head then we irrigated all the wounds closed the deep tissue with 0 Vicryl the subcu with 2-0 Vicryl the skin was closed with monty a sterile dressing was applied the patient was awakened and transferred stable to recovery room
[2024-07-31] MEDS ORDERED: ATROPINE ABBOJECT 1 MG/10 ML SYRINGE IVP PRN (10:54)
[2024-07-31] MEDS ORDERED: fentaNYL 100 MCG/2 ML VIAL IVP PRN (10:54)
[2024-07-31] MEDS ORDERED: ONDANSETRON 4 MG/2 ML VIAL IVP PRN (10:54)
[2024-07-31] MEDS ORDERED: HYDROmorphone 0.5 MG/0.5 ML SYRINGE IVP PRN (10:54)
[2024-07-31] MEDS ORDERED: MORPHINE 2 MG/ML CARPUJECT IVP PRN (10:54)
[2024-07-31] MEDS ORDERED: NALOXONE 0.4 MG/ML VIAL IVP PRN (10:54)
--- NOTE | 2024-07-31 11:17 | ANESTHESIA POST OP EVALUATION ---
Anesthesia Post Eval Post Anesthesia Eval Vitals: Last Vital Signs Temp 36.4 C L 07/31/24 11:10 Pulse 71 07/31/24 11:15 Resp 19 07/31/24 11:15 BP 166/56 H 07/31/24 11:15 Pulse Ox 99 07/31/24 11:15 CV Function Including HR & BP: Stable Pain Control: Satisfactory Nausea & Vomiting: Negative Mental Status: Baseline Respiratory Status: Airway Patent Hydration Status: Satisfactory Anesthesia Complications: None
[2024-07-31] MEDS: oxyCODONE 5 MG TABLET PO PRN (11:45)
[2024-07-31] MEDS: ceFAZolin (2G) 2 GM in SODIUM CHLORIDE 0.9% MINIBAG 100 ML IV ONE (11:58)
[2024-07-31] MEDS: LACTATED RINGERS 1,000 ML IV SCH (12:11)
[2024-07-31] MEDS: SODIUM CHLORIDE 0.9% 1,000 ML IV SCH (12:12)
[2024-07-31] MEDS: ceFAZolin (2G) 2 GM in SODIUM CHLORIDE 0.9% MINIBAG 100 ML IV SCH (16:40)
--- NOTE | 2024-07-31 17:46 | XRAY Report ---
PROCEDURE: FL OR C-Arm Procedure INDICATIONS: HIP NAILING FLUORO TIME: 0.3 MIN TECHNIQUE: Intraoperative views during left hip ORIF. COMPARISON: 07/30/2024. FINDINGS/IMPRESSION: Intraoperative views during left hip ORIF. Hardware appears intact. Reviewed by: Jared Mixon MD on 07/31/2024 5:45 PM PDT Approved by: Jared Mixon MD on 07/31/2024 5:45 PM PDT Station ID: [id number]
[2024-08-01 04:36] LABS: HCT - HEMATOCRIT 30.7 % (37.0-47.0); HGB - HEMOGLOBIN 10.6 g/dL (12.0-16.0); MEAN CORPUSCULAR HEMOGLOBIN 33.7 pg (27.0-31.0); MEAN CORPUSCULAR HGB CONC 34.5 g/dL (32.0-36.0); MEAN CORPUSCULAR VOLUME 97.5 fL (81.0-99.0); MEAN PLATELET VOLUME 10.4 fL (7.9-10.8); RED BLOOD COUNT 3.15 10^6/uL (4.20-5.40); RED CELL DISTRIBUTION WIDTH 14.6 % (12.0-15.0); WHITE BLOOD COUNT 9.2 x10^3/uL (4.8-10.8)
[2024-08-01 04:53] LABS: CALCIUM 8.5 mg/dL (8.5-10.3); CREATININE 0.5 mg/dL (0.6-1.3); MAGNESIUM 1.9 mg/dL (1.7-2.3)
[2024-08-01] MEDS: polyethylene glycoL 3350 17 GM PACKET PO SCH (07:45)
[2024-08-01] MEDS: ASPIRIN EC 81 MG TABLET PO SCH (07:48)
--- NOTE | 2024-08-01 08:01 | Discharge Summary ---
"Discharge Summary Admit Date: 07/30/24 Discharge Date: 08/02/24 Discharging Provider: Dr. Ash Bishop Code Status: Attempt Resuscitation Discharge Facility Name: Home with Home Health DIAGNOSES Admission Diagnoses: Closed intertrochanteric fracture of left femur Essential hypertension High cholesterol Insomnia Discharge Diagnoses with Status of Each Condition: Closed intertrochanteric fracture of left femurcompleted left hip ORIF with intramedullary nail on 07/31. Plan for Eliquis for 30 days. Plan for home physical therapy. Did send home some oxycodone for pain as needed. Hypertensioncontinue to follow-up outpatient with PCP. High cholesterolcontinue statin. Insomniacontinue trazodone HPI History of Present Illness: Per PA studentAnna: 79 year old female with history of B/L total knee replacements, B/L shoulder arthroplasty, osteoporosis presents s/p ground level fall last night. Patient reports falling on her left hip while getting out of bed due to pre-existing left foot pain. Denies any LOC, dizziness, or syncope prior to fall. Denies landing on left wrist, denies wrist pain. States she attempted to get up but couldn't bear weight on her left leg. States she scooted over to the restroom to pee and then to the kitchen to get her phone to call her daughter. She arrived via EMS. Denies loss of bowel or bladder control. Denies back pain. Reports history of osteoporosis and getting IV infusion Bisphosphonate yearly. Denies history of diabetes. Denies blood thinner use. Denies history of smoking and quit alcohol use 18 years ago. She currently lives alone and normally ambulates without aid. She has two dogs and walks at least 5 miles a day. Denies history of RA. Currently rates pain as 3/10. CONSULTS | PROCEDURES Consultations: Orthopedic surgery Procedures: Hip x-ray HOSPITAL COURSE Hospital Course: Patient is a 79-year-old female with a history of osteoporosis who presented after a ground-level fall. She missed stepped due to existing left foot pain. X-ray showed displaced intertrochanteric fracture of left proximal femur. Orthopedic surgery completed ORIF and intramedullary nail pending. PT/OT saw the patient, and recommended home with home health. Advise Eliquis for 30 days for DVT prophylaxis, pain control. Patient deemed to go for discharge home. She was advised to follow-up closely with orthopedics and her primary care provider. ALLERGIES Allergies Allergy/AdvReac Type Severity Reaction Status Date / Time Sulfa (Sulfonamide Allergy Unknown Unknown Verified 05/14/24 13:55 Antibiotics) MEDICATIONS Ambulatory Orders Medication Instructions Recorded Confirmed fluticasone propionate 50 2 spray inhalation DAILY 01/1007/30/24 mcg/actuation nasal spray,suspension trazodone 50 mg tablet 50 mg ORAL QPM Insomnia 05/2507/30/24 ascorbic acid (vitamin C) 500 mg 500 mg PO DAILY 01/1707/30/24 capsule calcium 300 mg (carb, 2 ea PO BID 01/17/17 5 citrate)-magnesium 150 mg-vit D3 400 unit tablet (Hector-Mag Complex) cholecalciferol (vitamin D3) 25 50 mcg PO DAILY 07/30/24 mcg (1,000 unit) capsule multivitamin (Multiple Vitamins 1 ea PO BID supplement 01/17/17 07/30/24 tablet) omega 6-zaq-ubl-fish oil 300 1,000 mg PO DAILY 7 07/30/24 mg-1,000 mg capsule (Fish Oil) sennosides 8.6 mg tablet (Senna 8.6 mg PO BID 01/17/17 07/30/24 Laxative) vitamin B comp with C no.4 150 mg 1 cap PO DAILY 01/1707/30/24 tablet (Super B Complex + C) diclofenac sodium 50 mg 50 mg PO BID back pain 03/1907/30/24 tablet,delayed release docusate sodium 100 mg capsule 100 mg PO BID 03/19/24 07/30/24 (Colace) rosuvastatin 5 mg tablet (Crestor) 5 mg PO QPM 5 07/30/24 terbinafine HCl 250 mg tablet 250 mg PO DAILY Fungus 0 03/19/24 07/30/24 oxybutynin chloride 5 mg tablet 5 mg PO QPM 07/30/24 0 07/30/24 apixaban 2.5 mg tablet (Eliquis) 2.5 mg PO BID 30 days #60 tabs 08/01/24 hydrocodone 5 mg-acetaminophen 325 1 tab PO Q4HR PRN M oderate Pain 08/01/24 mg tablet (Level 4-6) #7 tabs PHYSICAL EXAM AT DISCHARGE Vital Signs: Vital Signs x48h Temp Pulse Resp BP Pulse Ox 08/02/24 08:10 98.8 F 96 18 163/68 H 99 General Appearance: positive No acute distress and Alert; negative Anxious Eyes Bilateral: positive Normal inspection, PERRL and EOMI ENT: positive ENT inspection nml, Pharynx nml and No signs of dehydration Neck: positive Nml inspection, Thyroid nml and No JVD Respiratory: positive Chest non-tender, No respiratory distress and Breath sounds nml Cardiovascular: positive Regular rate & rhythm, No murmur and No gallop Peripheral Pulses: positive 2+ Abdomen: positive Non-tender, No organomegaly and Nml bowel sounds; negative Tenderness, Guarding or Hepatomegaly Back: positive Nml inspection; negative CVA tenderness (R) or CVA tenderness (L) Skin: positive Color nml, No rash and Dry Extremities: positive Other (Left hip incision covered with bandage, no drainage or swelling noted. Some tenderness with movement of the hip joint) Neurologic/Psychiatric: positive Oriented x3, Motor nml and Mood/affect nml LABS 08/02/24 04:19 08/02/24 04:19 QUALITY (Female Hip Fx Only) Was patient sent home on osteoporosis medication?: Yes FOLLOW UP Follow Up: Follow up with PCP. Follow up with orthopedic surgery. TIME SPENT Time Spent in Discharge (Minutes): 35 Discharge Plan Discharge Patient Disposition: 06 Home Health Service Condition: Stable Prescriptions: New hydrocodone-acetaminophen 5-325 mg Tablet 1 tab PO Q4HR PRN (Reason: Moderate Pain (Level 4-6)) Qty: 7 0RF Eliquis 2.5 mg tablet 2.5 mg PO BID 30 Days Qty: 60 0RF Continued trazodone 50 MG tablet 50 mg ORAL QPM fluticasone propionate 120 SPRAYS spray,suspension 2 spray inhalation DAILY multivitamin [Multiple Vitamins] 1 EACH tablet 1 ea PO BID sennosides [Senna Laxative] 8.6 MG tablet 8.6 mg PO BID cholecalciferol (vitamin D3) 1,000 UNIT capsule 50 mcg PO DAILY Super B Complex + C 150 MG tablet 1 cap PO DAILY omega 9-csc-ozj-fish oil [Fish Oil] 1 EACH capsule 1,000 mg PO DAILY ascorbic acid (vitamin C) 500 MG capsule 500 mg PO DAILY Hector-Mag Complex 1 EACH tablet 2 ea PO BID terbinafine HCl 250 mg tablet 250 mg PO DAILY diclofenac sodium 50 mg tablet,delayed release (DR/EC) 50 mg PO BID rosuvastatin [Crestor] 5 mg tablet 5 mg PO QPM docusate sodium [Colace] 100 mg capsule 100 mg PO BID oxybutynin chloride 5 mg tablet 5 mg PO QPM Activity Restrictions: Activity as Tolerated Diet: Regular Health Concerns: Derik had a left hip pinning by Dr Keith at [facility] on 07/31/24. You are weight bearing as tolerated. We encourage active movement of the toes every hour as tolerated. You will follow up at [facility] within 2 weeks of discharge. If you have any problems, please call our office at [phone] between the hours of 8am-5pm on Friday through Friday. If it is after these hours and you have a problem, please seek care in the Emergency Department. You have a Mepilex dressing in place which should remain in place until your follow-up visit.Your skin was closed with monty which will be removed at your surgeon's direction at your follow up in the orthopedic office. You can take a shower if needed with this dressing in place. Please call the office if the dressing falls off or if you notice fever, chills, excessive bleeding or drainage from the surgical wound. If it is after normal business hours and you notice chest pain or difficulty breathing, please seek care in the Emergency Department as this can be a sign of a blood clot in your lungs. Avoid rotating your toes away from the center of your body, crossing the legs and bending the knee to the chest in a position of flexion. These positions increase your risk of hip dislocation. Take care moving from a sit to stand position when getting up from a chair or toilet. Take Eliquis 2.5 mg twice daily for 1 month to prevent blood clots. Take this medication regardless of pain. Print Language: Turkmen Patient Instructions: Surg Dc Stand Alone Forms: PCP List Follow-up Care: Christiano Keith DO [Provider Admit Priv/Credential] - 2 Weeks"
[2024-08-01] MEDS: HYDROcod/ACETAM 5/325 MG TABLET PO PRN (11:20)
--- NOTE | 2024-08-01 11:36 | POST OP PROGRESS NOTE ---
Subjective General Admit Date: 07/30/24 Procedure Performed: Status post IM saloni left hip intertrochanteric fracture Other Other Information/Narrative: Patient was seen and examined today and I did have a long conversation with the patient and her daughter about discharge planning and the goal is to get her physical therapy for the next day or 2 here and determine if she can go home and Nilayl optimistic that if she can learn to do 3-4 steps here in the hospital but she will probably be strong enough to be discharged home. Exam Exam Vital Signs: Vital Signs x48h Temp Pulse Resp BP Pulse Ox 08/01/24 09:10 36.7 C 80 20 159/73 H 95 Exam directed towards the left hip reveals the incision to be intact with no erythema no drainage no signs and symptoms of any infection
--- NOTE | 2024-08-01 12:37 | PROVIDER PROGRESS NOTE ---
Subjective Subjective Subjective: This morning, patient is doing well. She states her pain is well-controlled with Tylenol. She is anxious to work with physical therapy. Current Medications Current Medications Current Medications: Current Medications Generic Name Dose Route Start Last Admin Trade Name Freq PRN Reason Stop Dose Admin Acetaminophen 650 mg 07/30/24 09:59 08/01/24 07:47 Acetaminophen 325 Mg Tablet PO 650 mg Q4HR PRN Administration Pain or Fever > 38C (100.4F) Hydrocodone Bitart/Acetaminophen 1 tab 07/31/24 12:26 08/01/24 11:20 Hydrocod/Acetam 5/325 Mg Tablet PO 1 tab Q4HR PRN Administration Moderate Pain (Level 4-6) Ascorbic Acid 500 mg 07/31/24 09:00 08/01/24 07:48 Ascorbic Acid 500 Mg Tablet PO 500 mg DAILY ROMEL Administration Aspirin 81 mg 08/01/24 09:00 08/01/24 07:48 Aspirin Ec 81 Mg Tablet PO 81 mg BID ROMEL Administration Atorvastatin Calcium 10 mg 07/30/24 21:00 07/31/24 21:48 Atorvastatin 10 Mg Tablet PO 10 mg QPM ROMEL Administration Calcium Carbonate/Glycine 1,000 mg 07/30/24 21:00 08/01/24 07:46 Calcium Carbonate Chew 500 Mg Tablet PO 1,000 mg BID ROMEL Administration Cholecalciferol 50 mcg 07/31/24 09:00 08/01/24 07:47 Cholecalciferol 25 Mcg Tablet PO 50 mcg DAILY ROMEL Administration Docusate Sodium 100 mg 07/30/24 21:00 08/01/24 07:47 Docusate Sodium 100 Mg Capsule PO 100 mg BID ROMEL Administration Fluticasone Propionate 2 sprays 07/31/24 09:00 08/01/24 07:45 Fluticasone Nasal [place] KETURAH 2 sprays DAILY ROMEL Administration Morphine Sulfate 2 mg 07/30/24 09:59 07/31/24 07:37 Morphine 2 Mg/Ml Carpuject IVP 2 mg Q2HR PRN Administration Severe Pain (Level 7-10) Multivitamins 1 tab 07/31/24 08:00 08/01/24 07:47 Multivitamin Tablet PO 1 tab DAILYWM ROMEL Administration Aygzr-3-Leem Ethyl Esters 1 gm 07/31/24 09:00 08/01/24 07:47 [place]-3 Acid Ethyl Esters 1 Gm Capsule PO 1 gm DAILY ROMEL Administration Super B Complex 1 each 07/31/24 09:00 08/01/24 10:45 PO Not Given DAILY ROMEL Polyethylene Glycol 17 gm 08/01/24 07:30 08/01/24 07:49 Polyethylene Glycol 3350 17 Gm Packet PO 17 gm DAILY ROMEL Administration Senna 8.6 mg 07/30/24 21:00 08/01/24 07:48 Senna 8.6 Mg Tablet PO 8.6 mg BID ROMEL Administration Sodium Chloride 10 ml 07/30/24 09:45 Sodium Chloride Flush 0.9% 10 Ml Syringe IVP PRN PRN NEEDED PER PROVIDER ORDERS Sodium Chloride 10 ml 07/30/24 09:45 08/01/24 10:48 Sodium Chloride Flush 0.9% 10 Ml Syringe IVP 10 ml 0100,0900,1700 ROMEL Administration Solifenacin 5 mg 07/30/24 21:00 07/31/24 21:48 Solifenacin Succinate 5 Mg Tablet PO 5 mg QPM ROMEL Administration Trazodone HCl 50 mg 07/30/24 21:00 07/31/24 21:48 Trazodone 50 Mg Tablet PO 50 mg QPM ROMEL Administration Objective Vital Signs/Intake & Output Reviewed Vital Signs: Yes Vital Signs: Vital Signs x48h Temp Pulse Resp BP Pulse Ox 08/01/24 09:10 98.1 F 80 20 159/73 H 95 Intake & Output: Intake & Output 07/29/24 07/30/24 07/31/24 08/01/24 23:59 23:59 23:59 23:59 Intake Total 540 / 540 2297 / 2297 540 / 540 Output Total 1200 / 1200 1050 / 1050 450 / 450 Balance -660 / -660 1247 / 1247 90 / 90 Weight (kg) 52 kg Objective General Appearance: positive No acute distress and Alert; negative Anxious Eyes Bilateral: positive Normal inspection, PERRL and EOMI ENT: positive ENT inspection nml, Pharynx nml and No signs of dehydration Neck: positive Nml inspection, Thyroid nml and No JVD Respiratory: positive Chest non-tender, No respiratory distress and Breath sounds nml; negative Wheezes, Rales or Rhonchi Cardiovascular: positive Regular rate & rhythm, No murmur and No gallop; negative Tachycardia or Systolic murmur Abdomen: positive Non-tender, No organomegaly and No distention; negative Guarding or Splenomegaly Back: positive Nml inspection; negative CVA tenderness (R) or CVA tenderness (L) Skin: positive Color nml, No rash, Warm and Dry Extremities: positive Non-tender and Other (Left leg with pain on movement. Incision with no drainage noted) Neurologic/Psychiatric: positive Oriented x3, Motor nml and Mood/affect nml Lab Results 08/01/24 04:18 08/01/24 04:18 Other Labs: Lab Results x24hrs 08/01/24 Range/Units 04:18 WBC 9.2 (4.8-10.8) x10^3/uL RBC 3.15 L (4.20-5.40) 10^6/uL Hgb 10.6 L (12.0-16.0) g/dL Hct 30.7 L (37.0-47.0) % MCV 97.5 (81.0-99.0) fL MCH 33.7 H (27.0-31.0) pg MCHC 34.5 (32.0-36.0) g/dL RDW 14.6 (12.0-15.0) % Plt Count 179 (130-450) 10^3/uL MPV 10.4 (7.9-10.8) fL Sodium 132 L (135-145) mmol/L Potassium 4.0 (3.5-4.5) mmol/L Chloride 100 L (101-111) mmol/L Carbon Dioxide 29 (21-32) mmol/L Anion Gap 3.0 L (6-13) BUN 13 (6-20) mg/dL Creatinine 0.5 L (0.6-1.3) mg/dL Estimated GFR (MDRD) 118 (>89) Glucose 118 H (74-104) mg/dL Calcium 8.5 (8.5-10.3) mg/dL Magnesium 1.9 (1.7-2.3) mg/dL Assessment/Plan Problem List (1) Closed intertrochanteric fracture of left femur: Impression: Patient had a ground-level fall, mechanical. No syncope, prodrome, lightheadedness etc. Hip x-ray showed a acute comminuted and displaced intertrochanteric fracture of the left proximal femur. Orthopedic surgery was consultedthey completed a ORIF of the left hip with intramedullary nail 07/31. Plan for PT/OT evaluation today, based on recommendations, will determine placmeent. Continue Tylenol for mild pain, [place] for moderate painpatient states that she has a oxycodone allergy - and morphine for severe pain. She still required IV morphine for pain control today. Continue to encourage early ambulation. Eliquis 2.5 mg twice daily for DVT prophylaxis. Qualifiers: Encounter type: initial encounter Fracture alignment: displaced Q ualified Code(s): S72.142A - Displaced intertrochanteric fracture of left femur, initial encounter for closed fracture (2) Essential hypertension: Impression: Patient currently not on any medications for elevated blood pressure. Does carry a diagnosis of hypertension. Will continue to monitor, encouraged outpatient follow-up. (3) High cholesterol: Impression: Continue statin. (4) Insomnia: Impression: Continue trazodone. Qualifiers: Insomnia type: unspecified Qualified Code(s): G47.00 - Insomnia, unspecified
--- NOTE | 2024-08-01 14:13 | PT Plan of Care ---
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 Please see chart for complete medical hx. The pt was received resting comfortably supine in bed while eating her lunch and presented today with decreased L LE strength, decreased activity tolerance, and impaired standing balance which limited her tolerance with functional mobility. Her daughter was present and assisting with a chair follow throughout all mobility this session. The pt was educated on stair training, retro step up to get into a tall bed, and mock car transfer training. She was educated on HEP interventions to do between PT sessions, these included seated marching, seated LAQ, and seated ankle pumps. She was able to teach back and demo correct form throughout and agreed to perform these throughout the day as tolerated. At this time recommend continued skilled PT intervention while in the acute setting and DC home with her daughter who has agreed to stay with the pt for up to a week as needed. Also recommend pt receive HH therapy and bath aid. This plan was discussed with the pt and her daughter, they were both in agreement with this. At the end of the session the pt was sitting up in a chair with call light in reach and all needs met while eating her lunch and visiting with her daughter. RN, DC meeting planner, and MD all updated on pt's status and DC rec. PATIENT/FAMILY GOALS Patient/Family Goals: To be able to go back home and take care of my dogs GOALS Improve supine to sit to:: Independent Improve sit to stand to:: Modified Independent Improve pivot transfer ability to:: Modified Independent Improve sit to supine to:: Independent Improve gait ability to:: Ind Advance Assistive Device to:: Front Wheeled Walker Increase distance walked to (in feet):: 50 PLAN Frequency: 1-2x/day Duration: Until discharge DISCHARGE RECOMMENDATIONS Discharge Location: Previous Living Situation Support/Services Needed: Home Health P.T. Other Discharge Equipment: pt owns all recommended DME Transport Needs at Discharge: Personal vehicle
[2024-08-02 05:04] LABS: HCT - HEMATOCRIT 28.5 % (37.0-47.0); HGB - HEMOGLOBIN 9.9 g/dL (12.0-16.0); MEAN CORPUSCULAR HEMOGLOBIN 33.1 pg (27.0-31.0); MEAN CORPUSCULAR HGB CONC 34.7 g/dL (32.0-36.0); MEAN CORPUSCULAR VOLUME 95.3 fL (81.0-99.0); MEAN PLATELET VOLUME 10.4 fL (7.9-10.8); RED BLOOD COUNT 2.99 10^6/uL (4.20-5.40); RED CELL DISTRIBUTION WIDTH 14.6 % (12.0-15.0); WHITE BLOOD COUNT 8.9 x10^3/uL (4.8-10.8)
[2024-08-02 05:17] LABS: CALCIUM 8.3 mg/dL (8.5-10.3); CREATININE 0.6 mg/dL (0.6-1.3); POTASSIUM 4.3 mmol/L (3.5-4.5)
[2024-08-02 08:10] VITALS: BP 163/68; TEMP 98.8; O2SAT 99
--- NOTE | 2024-08-02 14:07 | OT Plan of Care ---
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 Met supine in bed, A&Ox4, willing to participate with therapy. Performed supine to sit CGA (gait belt for assist with L LE), sit to stand and ambulation to/from bathroom using RW CGA Slowed pace. Pt educated and trained on use of AE for ADLs (Manager Operations Research, sock aid, and LHSH). Able to demonstrate use and complete ADLs CGA All questions answered. Pt has necessary DME ( shower seat and raised toilet) for home use. Issued sock aid and LHSH. No further skilled OT needed at acute level of care Rec d/c home with daughter assist and HHOT/PT. Plan Treatment Frequency Evaluation only, no further O.T. -Discharge Recommendations Discharge Location Previous Living Situation Support/Services Needed Home Health O.T. Transport Needs at Discharge Personal vehicle
== END 2024-08-02 13:35 | disposition home health service (06) | DRG 482 ==
LOC: EDBD → ED 07:45 → MS2 09:42
PROVIDERS: ADMIT Internal Medicine; ATTEND Internal Medicine
PROC: HIPNAIL (2024-07-31 09:00)
DX: E78.00 Pure hypercholesterolemia, unspecified; Z96.612 Presence of left artificial shoulder joint; S72.142A Displaced intertrochanteric fracture of left femur, initial encounter for closed fracture; G47.00 Insomnia, unspecified; M81.0 Age-related osteoporosis without current pathological fracture; Z79.01 Long term (current) use of anticoagulants; I10 Essential (primary) hypertension; W01.0XXA Fall on same level from slipping, tripping and stumbling without subsequent striking against object, initial encounter; Z96.611 Presence of right artificial shoulder joint; Z60.2 Problems related to living alone; Z96.653 Presence of artificial knee joint, bilateral